=== PATIENT | male | born 1955 | race Caucasian/White ===

== ENCOUNTER 2017-05-12 15:51 | Outpatient (CLI) | payer MEDICARE, MEDICAID | END 2017-05-12 15:52 | disposition home or self-care (01) | LOC: BICRAD 15:51 | PROVIDERS: ATTEND Internal Medicine Pulmonary Disease | DX: R06.00 Dyspnea, unspecified (principal) | CPT/HCPCS: 71046 ==

== ENCOUNTER 2017-06-10 13:13 | Outpatient (CLI) | payer MEDICARE, MEDICAID ==
--- NOTE | 2017-06-10 14:28 | RAD ---
CERVICAL SPINE 5 VIEWS INCLUDING FLEXION AND EXTENSION AND LATERAL VIEWS: Date: 06/10/17 HISTORY: 61-year-old male with neck pain. FINDINGS: Severe multilevel disc osteophytosis, particularly at C3-C4 through C6-C7. C7-T1 is mostly obscured o n the lateral view. No prevertebral soft tissue swelling. Generalized facet arthrosis. No abnormal tr anslation between flexion and extension. IMPRESSION: Extensive cervical spondylosis. No abnormal translation between flexion and extension. POS: OFF
== END 2017-06-10 13:14 | disposition home or self-care (01) ==
LOC: RAD 13:13
PROVIDERS: ATTEND Nurse Practitioner Family
DX: M47.892 Other spondylosis, cervical region (principal)
CPT/HCPCS: 72050

== ENCOUNTER 2018-03-07 14:50 | Outpatient (CLI) | payer MEDICARE, MEDICAID ==
--- NOTE | 2018-03-07 15:43 | RAD ---
PA AND LATERAL CHEST: History: Dyspnea. Comparison: 05-12-17 FINDINGS: Heart size is within normal limits. There are atherosclerotic changes of the aorta. Lungs are clear o f any infiltrative process. They show some chronic change. IMPRESSION: Stable chest. POS: TPC
== END 2018-03-07 14:51 | disposition home or self-care (01) ==
LOC: RAD 14:50
PROVIDERS: ATTEND Internal Medicine Pulmonary Disease
DX: R06.00 Dyspnea, unspecified (principal)
CPT/HCPCS: 71046

== ENCOUNTER 2019-07-17 13:19 | Outpatient (CLI) | payer MEDICARE, MEDICAID ==
--- NOTE | 2019-07-17 17:15 | RAD ---
LUMBAR SPINE: 07/17/19 Four views. HISTORY: Spondylosis of the lumbar region. Back pain. COMPARISON: Comparison made to lumbar film from 2014. Neutral flexion and extension images were obtained with weightbearing. FINDINGS: There is slight anterior wedging of the T12 vertebra. This is stable finding from 2014. Lumbar vertebra maintain height and alignment. Disc spaces are preserved. Mild degenerative spurring. Mild facet hypertrophy. Alignment is preserved with flexion and extension . IMPRESSION: Mild wedging at T12 is a stable finding when compared to 2014 exam. Mild degenerative changes of the lumbar spine. POS: AGW
== END 2019-07-17 13:20 | disposition home or self-care (01) ==
LOC: BICRAD 13:19
PROVIDERS: ATTEND Nurse Practitioner Family
DX: M47.816 Spondylosis without myelopathy or radiculopathy, lumbar region (principal); M48.54XA Collapsed vertebra, not elsewhere classified, thoracic region, initial encounter for fracture
CPT/HCPCS: 72110

== ENCOUNTER 2022-03-06 07:24 | Outpatient (CLI) | payer OTHER, MEDICAID | END 2022-03-06 07:25 | disposition home or self-care (01) | LOC: NM 07:24 | PROVIDERS: ATTEND Psychiatry & Neurology Neurology | DX: G25.0 Essential tremor (principal) | CPT/HCPCS: 78803; A9584 ×2 ==

== ENCOUNTER 2023-02-09 13:38 | Outpatient (CLI) | payer OTHER, MEDICAID | END 2023-02-09 13:39 | disposition home or self-care (01) | LOC: MRI 13:38 | PROVIDERS: ATTEND Specialist | DX: M51.16 Intervertebral disc disorders with radiculopathy, lumbar region (principal); M47.26 Other spondylosis with radiculopathy, lumbar region; M47.22 Other spondylosis with radiculopathy, cervical region; N28.1 Cyst of kidney, acquired; E04.1 Nontoxic single thyroid nodule; M89.38 Hypertrophy of bone, other site; K11.8 Other diseases of salivary glands | CPT/HCPCS: 72141; 72148 ==

== ENCOUNTER 2023-09-03 09:58 | Outpatient (CLI) | payer OTHER, MEDICAID | END 2023-09-03 09:59 | disposition home or self-care (01) | LOC: RAD 09:58 | PROVIDERS: ATTEND Internal Medicine | DX: R06.00 Dyspnea, unspecified (principal); J98.4 Other disorders of lung; Q25.46 Tortuous aortic arch | CPT/HCPCS: 71046 ==

== ENCOUNTER 2023-12-15 13:06 | Outpatient (CLI) | payer OTHER, MEDICAID ==
[2023-12-15 14:26] LABS: #Basophils 0.07 10x3/uL (0.0-0.2); %Eosinophils 0.4 % (0.0-10.0); %Lymphocytes 22.8 % (21.0-51.0); %Monocytes 11.8 % (0.0-10.0); %Neutrophils 63.3 % (42.0-75.0); Hematocrit 45.7 % (42.0-52.0); Hemoglobin 15.3 g/dL (14.0-18.0); Mean Corpuscular HGB CONC 33.5 g/dL (32.0-36.0); Mean Corpuscular Volume 89.6 fL (78.0-98.0); Mean Platelet Volume 10.3 fL (7.4-10.4); Platelet Count 449 10x3/uL (130-400); RBC Distribution Width 13.4 % (11.5-14.5)
[2023-12-15 14:38] LABS: INR-International Normal Ratio 1.1; PTT 32.9 sec (22.9-36.1); Prothrombin Time 14.2 sec (12.0-14.7)
[2023-12-15 14:50] LABS: Anion Gap 16 mmol/L (10-20); BUN (Urea Nitrogen) 14 mg/dL (8.4-25.7); Calc. Creatinine Clearance 0 mL/min (70-130); Calcium 9.1 mg/dL (7.8-10.44); Carbon Dioxide 21 mmol/L (23-31); Chloride 105 mmol/L (98-107); Estimated GFR 96; Glucose 101 mg/dL (80-115); Sodium 138 mmol/L (136-145)
== END 2023-12-15 13:07 | disposition home or self-care (01) ==
LOC: LABBT 13:06
PROVIDERS: ATTEND Orthopaedic Surgery
DX: Z01.818 Encounter for other preprocedural examination (principal); M54.2 Cervicalgia; M54.12 Radiculopathy, cervical region
CPT/HCPCS: 80048; 85025; 85610; 85730; 86850; 86900; 86901; 93005; 93010

== ENCOUNTER 2023-12-24 05:51 | Observation (INO) | payer OTHER, MEDICAID ==
[2023-12-15 13:34] VITALS: BMI 23.6
[2023-12-24] MEDS ORDERED: Ketamine In 0.9 % NaCl 50 MG/5 ML SYRINGE ONE (06:00)
[2023-12-24] MEDS ORDERED: Propofol 1,000 MG/100 ML VIAL IV ONE (06:00)
[2023-12-24] MEDS ORDERED: Albuterol HFA (OR) 200 PUFF INH ONE (06:11)
[2023-12-24] MEDS ORDERED: fentaNYL PF 100 MCG/2 ML SYRINGE ONE (06:11)
[2023-12-24] MEDS ORDERED: SUCCINYLCHOLINE/SOD CL,ISO/PF 200 MG/10 ML SYRINGE FS ONE (06:11)
[2023-12-24] MEDS ORDERED: Dexamethasone 4 mg/ml Vial ONE ×2 (06:11→07:43)
[2023-12-24] MEDS ORDERED: Lidocaine 2% PF 5 ML VIAL ONE (06:11)
[2023-12-24] MEDS ORDERED: PHENYLEPHRINE-NS 100 MCG/ML 10 ML SYRINGE ONE (06:12)
[2023-12-24] MEDS ORDERED: Midazolam HCl 2 mg/2 ml Vial ONE (06:12)
[2023-12-24] MEDS ORDERED: Glycopyrrolate 0.2 MG/ML 5 ML SYRINGE ONE (06:12)
[2023-12-24] MEDS ORDERED: Rocuronium Bromide 10 MG/ML (10ML VIAL) ONE (06:23)
[2023-12-24] MEDS ORDERED: Famotidine/PF 20 mg/2ml Vial ONE (06:29)
[2023-12-24] MEDS ORDERED: Thrombin 5000 UNITS/5 ML VIAL ONE (06:30)
[2023-12-24] MEDS ORDERED: CEFAZOLIN 2 GM VIAL ONE (06:59)
[2023-12-24] MEDS ORDERED: HYDROmorphone 2 MG/ML VIAL ONE (07:07)
[2023-12-24] MEDS ORDERED: Lidocaine 1% MPF 2 ML VIAL ONE (07:20)
[2023-12-24] MEDS ORDERED: Ondansetron PF 4 MG/2 ML Vial ONE (07:43)
[2023-12-24] MEDS ORDERED: traMADol HCl 50 MG TAB PO PRN ×2 (10:42→10:45)
[2023-12-24] MEDS ORDERED: Morphine 2 MG/ML VIAL SLOW IVP PRN (10:42)
[2023-12-24] MEDS ORDERED: Ondansetron PF 4 MG/2 ML Vial IVP PRN (10:42)
[2023-12-24] MEDS ORDERED: RENALLY ADJUST ABX FS PRN (10:45)
[2023-12-24] MEDS ORDERED: fentaNYL 50 mcg/mL 1 mL Vial ONE ×2 (10:49→11:29)
[2023-12-24] MEDS: HYDROcodone/Acetaminophen 10/325 mg Tablet PO PRN (13:18)
[2023-12-24] MEDS: Acetaminophen/Codeine 30-300mg Tablet PO PRN (15:42)
[2023-12-24] MEDS: CEFAZOLIN 2 GM in Sodium Chloride 0.9% 100 ML IVPB SCH (15:48)
[2023-12-24] MEDS: TETANUS, DIPHTHERIA TOX,ADULT (TDVAX) 0.5 ML VIAL IM ONE (18:19)
[2023-12-24] MEDS: Mometasone 200 MCG/Formoterol 5 MCG 120 PUFF INHALER INH SCH (18:25)
[2023-12-24] MEDS: Primidone 250 MG TAB PO SCH (21:46)
[2023-12-24] MEDS: Fluticasone Propionate Nasal Spray 16 gm Bottle NASAL SCH (21:47)
[2023-12-24] MEDS: Azelastine 137 MCG/NASAL Spray 30 ML NS SCH (21:47)
[2023-12-24] MEDS: Aspirin 81 mg Enteric Coated Tablet PO SCH (21:49)
[2023-12-24] MEDS: Rosuvastatin 10 MG TAB PO SCH (21:49)
[2023-12-24] MEDS: Cyclobenzaprine 10 MG TAB PO PRN (21:55)
[2023-12-24] MEDS: Temazepam 15 MG CAP PO PRN (21:55)
[2023-12-25 03:42] VITALS: TEMP 98.2
[2023-12-25 08:45] VITALS: BP 153/96
[2023-12-25] MEDS: Pantoprazole DR 40 MG TAB PO SCH (09:08)
[2023-12-25] MEDS: Methocarbamol 500 MG TAB PO SCH (09:08)
[2023-12-25] MEDS: Albuterol 2.5 MG (3 mL) NEB NEB SCH (11:43)
== END 2023-12-25 12:54 | disposition home or self-care (01) ==
LOC: SDC 05:51 → SURG A 12:06
PROVIDERS: ADMIT Orthopaedic Surgery; ATTEND Orthopaedic Surgery
PROC: 0RG13A0 Fusion of Cervical Vertebral Joint with Interbody Fusion Device, Anterior Approach, Anterior Column, Percutaneous Approach (ICD-10-PCS; principal; 2023-12-24)
PROC: 01N10ZZ Release Cervical Nerve, Open Approach (ICD-10-PCS; 2023-12-24)
PROC: 0RB30ZZ Excision of Cervical Vertebral Disc, Open Approach (ICD-10-PCS; 2023-12-24)
DX: M54.12 Radiculopathy, cervical region (principal); I10 Essential (primary) hypertension; I25.10 Atherosclerotic heart disease of native coronary artery without angina pectoris; K21.9 Gastro-esophageal reflux disease without esophagitis; E78.5 Hyperlipidemia, unspecified; J43.9 Emphysema, unspecified; F17.290 Nicotine dependence, other tobacco product, uncomplicated; F41.9 Anxiety disorder, unspecified; Z98.890 Other specified postprocedural states; Z88.0 Allergy status to penicillin; Z79.899 Other long term (current) drug therapy
CPT/HCPCS: 20930; 20936; 22551; 22845; 22853; 72040; 86850; 86900; 86901; 94640 ×3; 94664; C1713 ×2; C1889 ×2; J1100; J2250; J2405; J2704; J3010; J3490 ×2; J7611

== ENCOUNTER 2024-02-17 15:10 | Outpatient (CLI) | payer MEDICARE, MEDICAID | END 2024-02-17 15:11 | disposition home or self-care (01) | LOC: BICRAD 15:10 | PROVIDERS: ATTEND Orthopaedic Surgery | DX: M54.2 Cervicalgia (principal); Z98.890 Other specified postprocedural states; M50.30 Other cervical disc degeneration, unspecified cervical region | CPT/HCPCS: 72040 ==

== ENCOUNTER 2024-09-14 15:15 | Outpatient (CLI) | payer MEDICARE, MEDICAID | END 2024-09-14 15:16 | disposition home or self-care (01) | LOC: SCSRAD 15:15 | PROVIDERS: ATTEND Family Medicine | DX: J18.9 Pneumonia, unspecified organism (principal); M54.50 Low back pain, unspecified; M47.816 Spondylosis without myelopathy or radiculopathy, lumbar region | CPT/HCPCS: 71046; 72110 ==

== ENCOUNTER 2025-01-01 12:32 | Emergency (ER) | payer MEDICARE, MEDICAID ==
[2025-01-01 13:46] LABS: Actual Bicarbonate (HCO3v) 23.6 mEq/L (22-28); Base Excess -0.9 mEq/L (-2.0 to +3.0); Calcium, Ionized (venous) 1.09 mmol/L (1.16-1.32); Chloride (VBG) 105 mmol/L (98-106); Hematocrit-VBG 40 % (42.0-52.0); Hemoglobin (Hb) 13.5 g/dL (12.6-17.4); Potassium (VBG) 4.48 mmol/L (3.70-5.30); Sodium 140 mmol/L (133-146)
[2025-01-01 13:47] LABS: #Basophils 0.04 10x3/uL (0.0-0.2); #Eosinophils 0.04 10x3/uL (0.0-0.7); #Monocytes 0.79 10x3/uL (0.11-0.59); #Neutrophils 9.36 10x3/uL (1.40-6.50); %Basophils 0.4 % (0.0-1.0); %Eosinophils 0.4 % (0.0-10.0); %Lymphocytes 9.2 % (21.0-51.0); %Monocytes 7.0 % (0.0-10.0); %Neutrophils 82.3 % (42.0-75.0); Hematocrit 38.0 % (42.0-52.0); Hemoglobin 12.3 g/dL (14.0-18.0); Mean Corpuscular Hemoglobin 27.9 pg (27.0-31.0); Mean Corpuscular Volume 86.2 fL (78.0-98.0); Platelet Count 372 10x3/uL (130-400); Red Blood Cell (RBC) Count 4.41 mill/uL (4.70-6.10); White Blood Cell (WBC) Count 11.35 10x3/uL (4.8-10.8)
[2025-01-01 14:01] LABS: Acetaminophen Less than 10 mcg/mL (Less than 10); INR-International Normal Ratio 1.1; Magnesium 2.3 mg/dL (1.6-2.6); PTT 35.7 sec (22.9-36.1); Prothrombin Time 14.8 sec (12.0-14.7); Salicylate Less than 8.0 mg/dL (Less than 8.0)
[2025-01-01 17:13] LABS: ALT (SGPT) 30 U/L (Less than 45); AST (SGOT) 16 U/L (11-34); Albumin 3.3 g/dL (3.1-4.5); Alkaline Phosphatase 104 U/L (40-110); Anion Gap 16 mmol/L (10-20); BUN (Urea Nitrogen) 13 mg/dL (8.4-25.7); Bilirubin, Total 0.2 mg/dL (0.3-1.2); CK (CPK) 79 U/L (30-200); Calc. Creatinine Clearance 0 mL/min (70-130); Calcium 8.6 mg/dL (7.8-10.44); Carbon Dioxide 22 mmol/L (23-31); Chloride 106 mmol/L (98-107); Globulin 3.2 g/dL (2.4-3.5); Glucose 94 mg/dL (80-115); Potassium 3.6 mmol/L (3.5-5.1); Sodium 140 mmol/L (136-145)
== END 2025-01-01 17:23 | disposition short-term general hospital (02) ==
LOC: ERS 12:32
DX: S03.02XA Dislocation of jaw, left side, initial encounter (principal); S02.609A Fracture of mandible, unspecified, initial encounter for closed fracture; E04.1 Nontoxic single thyroid nodule; I10 Essential (primary) hypertension; R29.702 NIHSS score 2; Z87.891 Personal history of nicotine dependence; Z79.899 Other long term (current) drug therapy; W19.XXXA Unspecified fall, initial encounter
CPT/HCPCS: 36415; 70450; 70486; 71045; 72125; 72170; 80053; 80307; 82550; 82805; 83735; 83880; 84484; 85025; 85610; 85730; 93005

== ENCOUNTER 2025-01-05 15:39 | Inpatient (IN) | payer MEDICARE, MEDICAID ==
[2025-01-05 15:59] LABS: #Basophils 0.04 10x3/uL (0.0-0.2); #Eosinophils Less than 0.03 10x3/uL (0.0-0.7); #Monocytes 0.82 10x3/uL (0.11-0.59); #Neutrophils 8.46 10x3/uL (1.40-6.50); %Basophils 0.4 % (0.0-1.0); %Eosinophils 0.1 % (0.0-10.0); %Lymphocytes 7.2 % (21.0-51.0); %Monocytes 8.1 % (0.0-10.0); %Neutrophils 83.4 % (42.0-75.0); Hematocrit 40.1 % (42.0-52.0); Hemoglobin 13.1 g/dL (14.0-18.0); Mean Corpuscular Hemoglobin 27.8 pg (27.0-31.0); Mean Corpuscular Volume 85.0 fL (78.0-98.0); Platelet Count 436 10x3/uL (130-400); Red Blood Cell (RBC) Count 4.72 mill/uL (4.70-6.10); White Blood Cell (WBC) Count 10.14 10x3/uL (4.8-10.8)
[2025-01-05] MEDS ORDERED: Ondansetron PF 4 MG/2 ML Vial ONE (16:25)
[2025-01-05 16:36] LABS: ALT (SGPT) 25 U/L (Less than 45); AST (SGOT) 18 U/L (11-34); Acetaminophen Less than 10 mcg/mL (Less than 10); Albumin 3.6 g/dL (3.1-4.5); Alkaline Phosphatase 120 U/L (40-110); Anion Gap 14 mmol/L (10-20); BUN (Urea Nitrogen) 18 mg/dL (8.4-25.7); Bilirubin, Total 0.2 mg/dL (0.3-1.2); Calc. Creatinine Clearance 0 mL/min (70-130); Calcium 9.1 mg/dL (7.8-10.44); Carbon Dioxide 22 mmol/L (23-31); Chloride 106 mmol/L (98-107); Globulin 3.6 g/dL (2.4-3.5); Glucose 115 mg/dL (80-115); Potassium 4.1 mmol/L (3.5-5.1); Salicylate Less than 8.0 mg/dL (Less than 8.0); Sodium 138 mmol/L (136-145)
[2025-01-05 16:43] LABS: CK (CPK) 63 U/L (30-200); Magnesium 2.2 mg/dL (1.6-2.6)
[2025-01-05 16:44] LABS: INR-International Normal Ratio 1.2; Prothrombin Time 15.2 sec (12.0-14.7)
[2025-01-05 16:45] LABS: PTT 41.4 sec (22.9-36.1)
[2025-01-05] MEDS ORDERED: Ondansetron PF 4 MG/2 ML Vial IVP PRN (19:20)
[2025-01-05] MEDS ORDERED: Lidocaine 1% (PF) 30 ML VIAL ONE (19:37)
[2025-01-05] MEDS: Melatonin 3 MG TAB PO PRN (23:02)
[2025-01-05] MEDS: Acetaminophen 325 MG TAB PO PRN (23:03)
[2025-01-05 23:40] VITALS: BMI 22.0
[2025-01-06 03:17] LABS: Bacteria/HPF None Seen HPF (None Seen); Glucose, Urine (Dipstick) 30 mg/dL (Negative); Leukocyte Negative Leu/uL (Negative); Protein, Urine (Dipstick) 20 mg/dL (Neg-Trace); RBC/HPF 0-3 HPF (0-3); Specific Gravity, Urine 1.032 (1.002-1.036); WBC/HPF 0-3 HPF (0-3)
[2025-01-06 03:21] LABS: Cocaine Metabolite Screen Negative (Negative); THC/Cannabinoid Screen Negative (Negative); Tricyclic Screen PRELIM POSITIVE (Negative)
[2025-01-06 05:48] LABS: #Basophils 0.04 10x3/uL (0.0-0.2); #Eosinophils 0.08 10x3/uL (0.0-0.7); #Monocytes 0.77 10x3/uL (0.11-0.59); #Neutrophils 3.80 10x3/uL (1.40-6.50); %Basophils 0.6 % (0.0-1.0); %Eosinophils 1.2 % (0.0-10.0); %Lymphocytes 26.7 % (21.0-51.0); %Monocytes 11.9 % (0.0-10.0); %Neutrophils 59.0 % (42.0-75.0); Hematocrit 37.3 % (42.0-52.0); Hemoglobin 11.9 g/dL (14.0-18.0); Mean Corpuscular Hemoglobin 27.8 pg (27.0-31.0); Mean Corpuscular Volume 87.1 fL (78.0-98.0); Platelet Count 400 10x3/uL (130-400); Red Blood Cell (RBC) Count 4.28 mill/uL (4.70-6.10); White Blood Cell (WBC) Count 6.45 10x3/uL (4.8-10.8)
[2025-01-06 06:08] LABS: Anion Gap 13 mmol/L (10-20); BUN (Urea Nitrogen) 16 mg/dL (8.4-25.7); Calc. Creatinine Clearance 125 mL/min (70-130); Calcium 8.4 mg/dL (7.8-10.44); Carbon Dioxide 22 mmol/L (23-31); Chloride 107 mmol/L (98-107); Glucose 89 mg/dL (80-115); Potassium 3.5 mmol/L (3.5-5.1); Sodium 138 mmol/L (136-145)
[2025-01-06] MEDS ORDERED: Methocarbamol 500 MG TAB PO PRN (09:34)
[2025-01-06] MEDS: Albuterol 200 PUFF INH INH PRN (15:32)
[2025-01-06 16:09] VITALS: BMI 22.0
[2025-01-06] MEDS: Ibuprofen 800 MG TAB PO SCH (22:20)
[2025-01-06] MEDS: Primidone 250 MG TAB PO SCH (22:21)
[2025-01-06] MEDS: Cyclobenzaprine 10 MG TAB PO SCH (22:21)
[2025-01-07] MEDS: Rosuvastatin 10 MG TAB PO SCH (08:00)
[2025-01-08] MEDS: Acetaminophen/Codeine 30-300mg Tablet PO PRN (08:11)
[2025-01-10 12:37] VITALS: BP 134/84; TEMP 97.8
== END 2025-01-10 13:56 | disposition home health service (06) | DRG 948 ==
LOC: ERS 15:39 → SURG A 19:44 → OBSVTOIN 01-06 16:46
PROVIDERS: ADMIT Student in an Organized Health Care Education/Training Program; ATTEND Family Medicine
DX: R53.1 Weakness (principal); S02.609A Fracture of mandible, unspecified, initial encounter for closed fracture; K21.9 Gastro-esophageal reflux disease without esophagitis; J44.9 Chronic obstructive pulmonary disease, unspecified; I10 Essential (primary) hypertension; E78.5 Hyperlipidemia, unspecified; Z98.890 Other specified postprocedural states; Z88.0 Allergy status to penicillin; Z79.899 Other long term (current) drug therapy; W19.XXXA Unspecified fall, initial encounter; G89.4 Chronic pain syndrome; F41.1 Generalized anxiety disorder; S61.411A Laceration without foreign body of right hand, initial encounter; K59.00 Constipation, unspecified; F17.200 Nicotine dependence, unspecified, uncomplicated
CPT/HCPCS: 12002; 36415; 70450; 70486; 71045; 72125; 80048; 80053; 80306; 80307; 81001; 82550; 83605; 83735; 85025; 85610; 85730; 93005; 94640; 96374; 96375; 96376; 97139; G0378; J2003; J2272; J2405